=== PATIENT | female | born 1950 | race Caucasian/White ===

== ENCOUNTER 2022-05-22 16:01 | Emergency (ER) | payer MEDICARE, BC, SELFPAY ==
[2022-05-22 16:07] VITALS: BP 143/83; PULSE 66; RESP 18; TEMP 36.6; O2SAT 60; BMI 20.8
--- NOTE | 2022-05-22 17:24 | ED_ITS ---
HPI - General Adult General Chief complaint: Extremity Pain/Injury, Upper Stated complaint: Right Shoulder Pain Time Seen by Provider: 05/22/22 16:52 History of Present Illness HPI narrative: This 71-year-old female comes in with right shoulder pain and neck pain radiating down into her right arm. She states that she lifted a 5 lb object the night before last and had sudden onset of pain. She did not sleep well at night but states that the pain is improved some since then. She has too much pain to raise her arm above 90? but is able to function with normal range of motion otherwise. She does have history of cervical radiculopathy and osteoarthritis. Related Data Home Medications Medication Instructions Recorded Confirmed amlodipine 5 mg tablet mg 05/22/22 lisinopril 10 mg tablet mg 05/22/22 Previous Rx's Medication Instructions Recorded methylprednisolone 4 mg tablets in 4 mg PO DAILY #21 ea 05/22/22 a dose pack (Medrol (Chris)) Review of Systems Status of ROS: Reports: 10 or more systems reviewed and unremarkable except as noted in History and below Narrative: Constitutional: No fevers, no weight gain or loss. Eyes: No discharge. No vision changes. HENT: No congestion, no sore throat, no ear pain. Cardiovascular: No chest pain, no palpitations. Respiratory: No shortness of breath, no wheezes, no cough. Gastrointestinal: No abdominal pain, no vomiting, no diarrhea. Genitourinary: No dysuria, no hematuria. Musculoskeletal: Right shoulder pain with decreased range of motion as described above. Skin: No rashes, no pruritis. Neurological: No dizziness, weakness, sensory change, speech change. Endo/Heme/Allergies: No bruising or bleeding. No polydipsia. Pysch: no suicidality, no anxiety, no insomnia. All other systems reviewed and are negative. Exam Const: Vital Signs, click to edit/add: Vital Signs - 24 hr 05/22/22 16:07 Temperature 97.8 F Pulse Rate [Right Pulse Oximeter] 66 Respiratory Rate 18 Blood Pressure [Le ft Upper Arm] 143/83 H Pulse Oximetry 60 L Course Course Hospital Course: Constitutional: Well-developed, well-nourished, no acute distress. HEENT: Normocephalic, atraumatic. Neck: Normal range of motion. Nontender. Supple. Heart: Regular. No murmurs. Normal rate. Intact distal pulses. Lungs: Clear to auscultation. No chest discomfort. No wheezes, rhonchi, or rales. Abdomen: Normal bowel sounds. Nontender. No rebound tenderness. Genitalia: Deferred. Back: No midline tenderness. Normal range of motion. Extremities: Right shoulder pain and neck pain that radiates down to the right hand. No sign of deformity or swelling. No point tenderness when palpating throughout the shoulder. Skin: Intact. No rash. Warm. No erythema or pallor. Neurologic: No altered sensation. No weakness. Alert and oriented. Psychiatric: No suicidality. No anxiety or depression. No insomnia. Nursing notes and vitals signs are reviewed. Vital Signs Vital signs: Initial Vital Signs Temperature 97.8 F 05/22/22 16:07 Temperature Source Temporal Artery Scan 05/22/22 16:07 Pulse Rate 66 05/22/22 16:07 Respiratory Rate 18 05/22/22 16:07 Blood Pressure 143/83 H 05/22/22 16:07 Blood Pressure Mean 103 05/22/22 16:07 Blood Pressure Position Sitting 05/22/22 16:07 Pulse Oximetry 60 L 05/22/22 16:07 Oxygen Delivery Method 05/22/22 16:07 Vital Signs Temperature 97.8 F 05/22/22 16:07 Pulse Rate 66 05/22/22 16:07 Respiratory Rate 18 05/22/22 16:07 Blood Pressure 143/83 H 05/22/22 16:07 Pulse Oximetry 60 L 05/22/22 16:07 Temperature 97.8 F 05/22/22 16:07 Pulse Rate 66 05/22/22 16:07 Respiratory Rate 18 05/22/22 16:07 Blood Pressure 143/83 H 05/22/22 16:07 Pulse Oximetry 60 L 05/22/22 16:07 Medical Decision Making MDM Narrative Medical decision making narrative: This patient comes in with pain as described above. IA suggested we try a Spurling's test and as I demonstrated how this maneuver can be done to evaluate for nerve impingement the patient stated that it was that very movement that triggered her pain in the 1st place. I did not attempt to do Spurling's test but IM thinking that this is a cervical radiculopathy that is causing pain radiating into her right shoulder and right arm down to her hand. There is no specific mechanism of injury that mandates x-ray or CT imaging at this time. She may need an MRI if symptoms are not improving. She received prescriptions for Toradol, [place], and Medrol Dosepak. I advised her to return if not improving or worsening symptoms happen. Discharge Plan Discharge Clinical Impression: Cervical radiculopathy Patient Disposition: Home, Self-Care Condition: Unchanged Additional Instructions: Take medications as needed and prescribed. Increase activity as tolerated. Follow up with primary physician, orthopedic clinic, or return to emergency department if not improving or worsening symptoms happen. Prescriptions: New methylprednisolone [Medrol (Chris)] 4 mg tablets,dose pack 4 mg PO DAILY Qty: 21 0RF No Action amlodipine 5 mg tablet 0RF Label Comments: TAKE 1 TABLET (5 MG) BY MOUTH ONCE DAILY. lisinopril 10 mg tablet 0RF Label Comments: TAKE 1 TABLET (10 MG) BY MOUTH ONCE DAILY. Follow Up/Referrals: Waleska Wesley DO [Primary Care Provider] - Stand Alone Forms: [employer] Info Instructions
== END 2022-05-22 17:44 | disposition home or self-care (01) ==
PROVIDERS: Emergency Provider Emergency Medicine Emergency Medical Services; PCP Family Medicine
DX: M54.12 Radiculopathy, cervical region (principal)
CPT/HCPCS: 99283; 99284

== ENCOUNTER 2022-06-07 16:39 | Outpatient (CLI) | payer MEDICARE, BC, SELFPAY ==
--- NOTE | 2022-06-07 17:00 | CRLHL7_ITS ---
For Patients: As a result of the Century Cures Act, medical imaging exams and procedure reports are released immediately into your electronic medical record. You may view this report before your referring provider. If you have questions, please contact your health care provider. INDICATION: Redness, swelling, pain COMPARISON: None. TECHNIQUE: Right upper extremity and neck venous ultrasound performed as well as ultrasound of left internal jugular vein including potts scale/2D, color Doppler, and spectral Doppler imaging including spectral waveform analysis. FINDINGS: The internal jugular, innominate, subclavian, axillary, basilic, cephalic, and brachial veins were patent and negative for thrombus. The left internal jugular vein was also patent and negative for thrombus where seen. There is an area heterogeneously hypoechoic collection of fluid associated with the long head of the biceps muscle/tendon of the upper arm/shoulder. This extends over a length of 13.2 cm and is 1.2 x 1.6 cm in the transverse dimensions. IMPRESSION: No evidence for DVT in the right upper extremity and neck venous system. Sonographic findings are suspicious for a tear of the long head of the biceps tendon with surrounding fluid/edema. MRI is recommended for further evaluation. Dictated by Alex Malcolm MD @ 06/08/2022 8:31:27 AM (Electronically Signed)
== END 2022-06-07 16:40 | disposition home or self-care (01) ==
PROVIDERS: PCP Family Medicine; Visit Provider Family Medicine
DX: M79.89 Other specified soft tissue disorders (principal); M79.604 Pain in right leg
CPT/HCPCS: 93971

== ENCOUNTER 2022-09-23 10:15 | Outpatient (RCR) | payer MEDICARE, BC, SELFPAY | END 2022-12-09 12:48 | disposition home or self-care (01) | PROVIDERS: PCP Family Medicine; Visit Provider Family Medicine | DX: N39.46 Mixed incontinence (principal); Z51.89 Encounter for other specified aftercare | CPT/HCPCS: 97110; 97112; 97140; 97162; 97535 ==

== ENCOUNTER 2024-09-07 11:30 | Outpatient (RCR) | payer MEDICARE, BC, SELFPAY | END 2024-12-12 12:48 | disposition home or self-care (01) | PROVIDERS: PCP Family Medicine; Visit Provider Nurse Practitioner Family | DX: N39.41 Urge incontinence (principal); Z51.89 Encounter for other specified aftercare | CPT/HCPCS: 97110; 97140; 97161; 97530; 97535 ==